=== PATIENT | female | born 1965 | race African-American/Black ===

== ENCOUNTER 2017-01-08 18:58 | Inpatient (IN) | payer MEDICAID ==
[~2017-01-08] VITALS: Ht 160 cm; Wt 113.4 kg
[~2017-01-08 18:58] MED LIST: AMLO10TA80 PO; CALC667C4 PO; CINA30 PO; CLONIDINE PO; FOLI1TAB63 PO; LOP25 PO
[2017-01-08 22:47] LABS: HEMATOCRIT. 27.8 % (36.0-48.0); HEMOGLOBIN. 9.3 g/dL (12.0-16.0); MEAN CORPUSCULAR HEMOGLOBIN 30.9 pg (28.0-32.0); MEAN CORPUSCULAR VOLUME 92.8 fL (81.0-99.0); MEAN PLATELET VOLUME 7.2 fl (7.4-10.4); PLATELET 365 x1000/uL (130-400)
[2017-01-08 22:54] LABS: INR 1.1; PROTHROMBIN TIME 11.9 sec (9.4-11.6)
[2017-01-08 22:56] LABS: CHLORIDE 90 mEq/L (98-107)
[2017-01-08 23:02] LABS: CARBON DIOXIDE 26 mEq/L (21-32)
[2017-01-08 23:03] LABS: PLATELET ESTIMATE NORMAL
[2017-01-09 09:00] VITALS: BP 177/94
[2017-01-09 09:15] VITALS: BP 177/94
[2017-01-09] MEDS ORDERED: IPRATROPIUM/ALBUTEROL 0.5-3(2.5)MG/3ML NEB INH PRN (09:30)
[2017-01-09] MEDS ORDERED: VANCOMYCIN 1 G PREMIX 200 ML IV SCH (09:30)
[2017-01-09] MEDS ORDERED: DOCUSATE SODIUM 100MG CAPSULE PO PRN (09:30)
[2017-01-09] MEDS ORDERED: ACETAMINOPHEN 325MG TABLET PO PRN (09:30)
[2017-01-09] MEDS ORDERED: CLONIDINE 0.1MG TABLET PO PRN (09:30)
[2017-01-09] MEDS ORDERED: ONDANSETRON HCL 4MG/2ML VIAL IV PRN (09:30)
[2017-01-09] MEDS ORDERED: MAGNESIUM/ALUMINUM HYDROXIDE/SIMETHICONE 30ML UDC PO PRN (09:30)
[2017-01-09] MEDS: HYDROCODONE/ACETAMINOPHEN 5/325MG TABLET PO PRN ×2 (10:40→20:10)
[2017-01-09 12:00] VITALS: BP 147/96
[2017-01-09] MEDS: CLONIDINE 0.1MG TABLET PO SCH ×2 (13:00→20:09)
[2017-01-09] MEDS ORDERED: METOPROLOL TARTRATE 25MG TABLET PO SCH (13:00)
[2017-01-09] MEDS: VITAMIN B / W-C 1 TAB PO SCH (13:50)
[2017-01-09] MEDS: CALCIUM ACETATE 667MG CAPSULE PO SCH ×2 (13:50→18:38)
[2017-01-09 16:00] VITALS: BP 143/87
[2017-01-09 20:00] VITALS: BP 142/86
[2017-01-09] MEDS: METOPROLOL TARTRATE 25MG TABLET PO SCH (20:09)
[2017-01-10] VITALS: BP 133/76
[2017-01-10 04:00] VITALS: BP 155/86
[2017-01-10] MEDS: HYDROCODONE/ACETAMINOPHEN 5/325MG TABLET PO PRN ×2 (04:34→16:57)
[2017-01-10] MEDS: OMEPRAZOLE 20MG CAPSULE EXTENDED RELEASE PO SCH (06:27)
[2017-01-10 07:47] LABS: PHOSPHORUS 8.6 mg/dL (2.5-4.9)
[2017-01-10 08:00] VITALS: BP 130/79
[2017-01-10 08:16] LABS: HEMOGLOBIN. 8.9 g/dL (12.0-16.0); MEAN CORPUSCULAR HEMOGLOBIN 30.3 pg (28.0-32.0); MEAN CORPUSCULAR VOLUME 91.9 fL (81.0-99.0); MEAN PLATELET VOLUME 7.6 fl (7.4-10.4); PLATELET 411 x1000/uL (130-400); RED BLOOD CELL COUNT 2.94 mill/uL (4.2-5.4); RED CELL DISTRIBUTION WIDTH 14.2 % (11.6-14.6)
[2017-01-10] MEDS: METOPROLOL TARTRATE 25MG TABLET PO SCH ×2 (08:59→20:26)
[2017-01-10] MEDS: CLONIDINE 0.1MG TABLET PO SCH ×2 (08:59→20:26)
[2017-01-10] MEDS: VITAMIN B / W-C 1 TAB PO SCH (09:00)
[2017-01-10] MEDS: AMLODIPINE 10MG TABLET PO SCH (09:00)
[2017-01-10] MEDS: CINACALCET HCL 60MG TABLET PO SCH (09:00)
[2017-01-10 09:53] LABS: PLATELET ESTIMATE NORMAL
[2017-01-10 12:00] VITALS: BP 113/69
[2017-01-10] MEDS: CALCIUM ACETATE 667MG CAPSULE PO SCH ×2 (12:52→16:57)
[2017-01-10 16:00] VITALS: BP 118/73
[2017-01-10 20:00] VITALS: BP 108/59
[2017-01-11] VITALS: BP 121/70
[2017-01-11 04:00] VITALS: BP 105/63
[2017-01-11] MEDS: OMEPRAZOLE 20MG CAPSULE EXTENDED RELEASE PO SCH (07:01)
[2017-01-11 07:24] LABS: HEMATOCRIT. 25.1 % (36.0-48.0); HEMOGLOBIN. 8.3 g/dL (12.0-16.0); MEAN CORPUSCULAR HEMOGLOBIN 30.5 pg (28.0-32.0); MEAN CORPUSCULAR VOLUME 92.5 fL (81.0-99.0); PLATELET 421 x1000/uL (130-400); RED BLOOD CELL COUNT 2.71 mill/uL (4.2-5.4); RED CELL DISTRIBUTION WIDTH 13.9 % (11.6-14.6)
[2017-01-11 08:00] VITALS: BP 113/61
[2017-01-11] MEDS: AMLODIPINE 10MG TABLET PO SCH (09:00)
[2017-01-11] MEDS: CLONIDINE 0.1MG TABLET PO SCH (09:00)
[2017-01-11] MEDS: VITAMIN B / W-C 1 TAB PO SCH (09:17)
[2017-01-11] MEDS: CINACALCET HCL 60MG TABLET PO SCH (09:17)
[2017-01-11] MEDS: METOPROLOL TARTRATE 25MG TABLET PO SCH (09:17)
[2017-01-11] MEDS: CALCIUM ACETATE 667MG CAPSULE PO SCH ×3 (09:17→17:22)
[2017-01-11 13:43] LABS: PLATELET ESTIMATE INCREASED
[2017-01-11 16:00] VITALS: BP 121/80
[2017-01-11 19:22] VITALS: BP 121/80
[2017-01-11] MEDS ORDERED: EPOETIN ALFA 10000UNITS/ML VIAL SUBCUT SCH (21:00)
[2017-01-12] MEDS ORDERED: FAMOTIDINE 20MG TABLET PO SCH (07:20)
== END 2017-01-11 20:30 | disposition home health service (06) | DRG 344 ==
LOC: ER 21:35 → 6EST 01-09 00:56 → ENRESERV 01-09 07:10 → SUPCPDRO 01-09 08:55
PROVIDERS: ADMIT Family Medicine Adult Medicine; ATTEND Family Medicine Adult Medicine
PROC: 5A1D60Z (ICD-10-PCS; principal; 2017-01-09)
DX: M00.012 Staphylococcal arthritis, left shoulder (principal); E11.22 Type 2 diabetes mellitus with diabetic chronic kidney disease; E44.0 Moderate protein-calorie malnutrition; N18.6 End stage renal disease; I12.0 Hypertensive chronic kidney disease with stage 5 chronic kidney disease or end stage renal disease; I25.10 Atherosclerotic heart disease of native coronary artery without angina pectoris; D63.8 Anemia in other chronic diseases classified elsewhere; R74.0 Nonspecific elevation of levels of transaminase and lactic acid dehydrogenase [LDH]; B95.62 Methicillin resistant Staphylococcus aureus infection as the cause of diseases classified elsewhere; Z86.73 Personal history of transient ischemic attack (TIA), and cerebral infarction without residual deficits; Z88.1 Allergy status to other antibiotic agents; Z99.2 Dependence on renal dialysis; Z91.19 Patient's noncompliance with other medical treatment and regimen; Z79.899 Other long term (current) drug therapy; Z68.41 Body mass index [BMI] 40.0-44.9, adult; E66.01 Morbid (severe) obesity due to excess calories
CPT/HCPCS: 36415; 71010; 80048; 80053; 80076; 80202; 83735; 84100; 85025; 85610; 93005; 93970; 97110; 97116; 97162; 97166; 99285; C1893; J0885; J7030

== ENCOUNTER 2018-01-01 17:42 | Emergency (ER) | payer MEDICAID ==
[~2018-01-01] VITALS: Ht 180.3 cm; Wt 135.0 kg
[~2018-01-01 17:42] MED LIST changes: -CALC667C4 PO; -CLONIDINE PO; +LEVO250T58 MT; +SEVE800T8 PO
[2018-01-01] MEDS ORDERED: MORPHINE SULFATE 4 MG/ML CPJ (NOT FOR IM USE) IV STA (21:02)
[2018-01-01] MEDS ORDERED: ONDANSETRON HCL 4MG/2ML VIAL IV STA (21:02)
[2018-01-01 22:05] LABS: INR 1.1; PARTIAL THROMBOPLASTIN TIME 28.9 sec (23.4-31.0); PROTHROMBIN TIME 10.7 sec (9.1-11.1)
[2018-01-01 22:06] LABS: BASOPHILS % 1.1 % (0.0-2.0); HEMATOCRIT. 33.8 % (36.0-48.0); HEMOGLOBIN. 11.5 g/dL (12.0-16.0); MEAN CORPUSCULAR HEMOGLOBIN 33.3 pg (28.0-32.0); MEAN CORPUSCULAR VOLUME 97.5 fL (81.0-99.0); MEAN PLATELET VOLUME 8.1 fl (7.4-10.4); MONOCYTES % 9.6 % (2.0-8.0); NEUTROPHILS % 74.3 % (40.0-76.0); PLATELET 227 x1000/uL (130-400); RED BLOOD CELL COUNT 3.47 mill/uL (4.2-5.4)
[2018-01-02 00:05] VITALS: BP 179/101
== END 2018-01-02 00:05 | disposition home or self-care (01) ==
LOC: ER 17:42
DX: T82.41XA Breakdown (mechanical) of vascular dialysis catheter, initial encounter (principal); Y83.2 Surgical operation with anastomosis, bypass or graft as the cause of abnormal reaction of the patient, or of later complication, without mention of misadventure at the time of the procedure; Y92.9 Unspecified place or not applicable; I12.0 Hypertensive chronic kidney disease with stage 5 chronic kidney disease or end stage renal disease; N18.6 End stage renal disease; Z99.2 Dependence on renal dialysis
CPT/HCPCS: 36415; 80048; 85025; 85610; 85730; 86850; 86900; 86901; 96374; 96375; 99284; J2270; J2405

== ENCOUNTER 2020-07-06 09:32 | Inpatient (IN) | payer MEDICAID ==
[~2020-07-06] VITALS: Ht 172.7 cm; Wt 90.7 kg
[2020-07-06] MEDS ORDERED: DEXAMETHASONE 10 MG/ML VIAL IV ONE (10:00)
[2020-07-06 10:53] LABS: BASOPHILS % 0.4 % (0.0-2.0); HEMATOCRIT. 40.1 % (36.0-48.0); HEMOGLOBIN. 13.1 g/dL (12.0-16.0); LYMPHOCYTES % 7.1 % (20.0-50.0); MEAN CORPUSCULAR HEMOGLOBIN 31.1 pg (28.0-32.0); MEAN CORPUSCULAR VOLUME 94.9 fL (81.0-99.0); MEAN PLATELET VOLUME 8.9 fl (7.4-10.4); MONOCYTES % 5.9 % (2.0-8.0); NEUTROPHILS % 86.6 % (40.0-76.0); PLATELET 251 x1000/uL (130-400); RED BLOOD CELL COUNT 4.23 mill/uL (4.2-5.4)
[2020-07-06 11:01] LABS: BG BASE EXCESS 2.1 mmol/L (-2.0-2.0); BG CARBOXYHEMOGLOBIN 0.4 % (0.5-1.5); BG DEOXYHEMOGLOBIN 10.9 % (0.0-5.0); BG FRACTION INSPIRED OXYGEN 100; BG HCO3 ACT 25.6 mmol/L (22.0-26.0); BG OXYGEN SATURATION 89.1 % (92.0-98.5); BG OXYHEMOGLOBIN 88.7 % (94.0-97.0); BG PH 7.469 (7.350-7.450); BG PO2 59.4 mmHg (75.0-100.0); BG SAMPLE SITE RIGHT RADIAL; BG TOTAL HEMOGLOBIN 13.7 g/dL (12.0-18.0); BG VENT MODE MASK - NRB
[2020-07-06 11:01] LABS: CHLORIDE 94 mEq/L (98-107)
[2020-07-06] MEDS ORDERED: CLINDAMYCIN 600 MG in DEXTROSE 5% WATER 50 ML IV ONE (11:30)
[2020-07-06] MEDS ORDERED: HEPARIN 25,000 UNITS PREMIX 250 ML IV SCH ×2 (11:30→12:45)
[2020-07-06] MEDS ORDERED: CLINDAMYCIN 600MG PREMIX 50 ML IV SCH (12:00)
[2020-07-06] MEDS ORDERED: HEPARIN BOLUS PRN aPTT <36 IV (12:45)
[2020-07-06] MEDS ORDERED: BENZONATATE 100MG CAPSULE PO PRN (12:45)
[2020-07-06] MEDS ORDERED: ALBUTEROL 6.7GM HFA INHALER ORI PRN (12:45)
[2020-07-06] MEDS ORDERED: HEPARIN BOLUS PRN aPTT 37-44 IV (12:45)
[2020-07-06] MEDS ORDERED: ONDANSETRON HCL 4MG/2ML INJ IV PRN (12:45)
[2020-07-06] MEDS ORDERED: HYDRALAZINE HCL 100MG TABLET PO NR (12:45)
[2020-07-06] MEDS ORDERED: ACETAMINOPHEN 325MG TABLET PO PRN (12:45)
[2020-07-06] MEDS ORDERED: LABETALOL 5MG/ML SYR 20 MG/4 ML SYRINGE IV NR (12:50)
[2020-07-06 13:09] LABS: BG BASE EXCESS 2.2 mmol/L (-2.0-2.0); BG CARBOXYHEMOGLOBIN 0.3 % (0.5-1.5); BG DEOXYHEMOGLOBIN 13.7 % (0.0-5.0); BG FRACTION INSPIRED OXYGEN 100; BG HCO3 ACT 26.3 mmol/L (22.0-26.0); BG METHEMOGLOBIN 0.3 % (0.0-1.5); BG OXYGEN SATURATION 86.2 % (92.0-98.5); BG OXYHEMOGLOBIN 85.7 % (94.0-97.0); BG PH 7.446 (7.350-7.450); BG PO2 54.9 mmHg (75.0-100.0); BG SAMPLE SITE RIGHT RADIAL; BG TOTAL HEMOGLOBIN 13.8 g/dL (12.0-18.0); BG VENT MODE HIGH FLOW
[2020-07-06 13:47] LABS: D-DIMER 6.72 mg/L FEU (<0.50); INR 1.1; PARTIAL THROMBOPLASTIN TIME 33.9 sec (23.4-31.0); PROTHROMBIN TIME 11.6 sec (9.6-11.0)
[2020-07-06] MEDS ORDERED: HEPARIN 80 UNITS/KG BOLUS IV SCH (14:00)
[2020-07-06] MEDS: LEVOFLOXACIN 500MG PREMIX 100 ML IV NR ×2 (14:11→14:43)
[2020-07-06] MEDS: ENOXAPARIN 40MG/0.4ML SYR SUBCUT SCH (14:17)
[2020-07-06] MEDS: NIFEDIPINE XL 60MG TAB PO SCH ×2 (14:41→20:56)
[2020-07-06] MEDS: ASPIRIN 81MG TABLET PO SCH (18:22)
[2020-07-06] MEDS: HYDRALAZINE HCL 100MG TABLET PO SCH (20:56)
[2020-07-07 05:13] LABS: HEMATOCRIT. 39.6 % (36.0-48.0); HEMOGLOBIN. 12.5 g/dL (12.0-16.0); MEAN CORPUSCULAR HEMOGLOBIN 30.3 pg (28.0-32.0); MEAN CORPUSCULAR VOLUME 95.6 fL (81.0-99.0); PLATELET 271 x1000/uL (130-400); RED BLOOD CELL COUNT 4.14 mill/uL (4.2-5.4); RED CELL DISTRIBUTION WIDTH 14.3 % (11.6-14.6)
[2020-07-07] MEDS ORDERED: IVERMECTIN 3 MG TABLET PO NR (08:00)
[2020-07-07] MEDS: ASPIRIN 81MG TABLET PO SCH (08:48)
[2020-07-07] MEDS: DEXAMETHASONE 10 MG/ML VIAL IV SCH (08:48)
[2020-07-07] MEDS: HYDRALAZINE HCL 100MG TABLET PO SCH ×2 (08:48→20:14)
[2020-07-07] MEDS: NIFEDIPINE XL 60MG TAB PO SCH ×2 (08:49→20:14)
[2020-07-07] MEDS: ENOXAPARIN 40MG/0.4ML SYR SUBCUT SCH (08:49)
[2020-07-07] MEDS ORDERED: DEXAMETHASONE 6MG TABLET PO SCH (09:00)
[2020-07-07 11:30] VITALS: BP 146/79
[2020-07-07 12:00] VITALS: BP 149/76
[2020-07-07 16:00] VITALS: BP 143/66
[2020-07-07 17:03] LABS: PLATELET ESTIMATE NORMAL
[2020-07-07 20:37] VITALS: BP 117/79
[2020-07-08] MEDS: HYDRALAZINE HCL 100MG TABLET PO SCH ×4 (00:34→21:58)
[2020-07-08 00:42] VITALS: BP 134/68
[2020-07-08 04:00] VITALS: BP 107/59
[2020-07-08 05:47] VITALS: BP 130/68
[2020-07-08 07:26] LABS: HEMATOCRIT. 36.2 % (36.0-48.0); MEAN CORPUSCULAR HEMOGLOBIN 31.3 pg (28.0-32.0); MEAN CORPUSCULAR VOLUME 94.4 fL (81.0-99.0); MEAN PLATELET VOLUME 8.5 fl (7.4-10.4); PLATELET 323 x1000/uL (130-400); RED BLOOD CELL COUNT 3.83 mill/uL (4.2-5.4); RED CELL DISTRIBUTION WIDTH 14.3 % (11.6-14.6)
[2020-07-08] MEDS: ASPIRIN 81MG TABLET PO SCH (08:22)
[2020-07-08] MEDS: DEXAMETHASONE 10 MG/ML VIAL IV SCH (08:23)
[2020-07-08] MEDS: NIFEDIPINE XL 60MG TAB PO SCH ×2 (08:23→21:58)
[2020-07-08] MEDS: ENOXAPARIN 40MG/0.4ML SYR SUBCUT SCH (08:23)
[2020-07-08 12:00] VITALS: BP 101/58
[2020-07-08] MEDS ORDERED: VANCOMYCIN 2,000 MG in DEXT 5% WATER 500 ML IV SCH (14:00)
[2020-07-08] MEDS ORDERED: ENOXAPARIN 60MG/0.6ML SYR SUBCUT NR (15:00)
[2020-07-08] MEDS ORDERED: DIPHENHYDRAMINE 50MG/ML VIAL IV PRN (15:45)
[2020-07-08] MEDS: LEVOFLOXACIN 250MG PREMIX 50 ML IV SCH (16:43)
[2020-07-08 20:00] VITALS: BP 115/67
[2020-07-08 23:34] LABS: NUCLEATED RED BLOOD CELLS 1 /100 WBC; PLATELET ESTIMATE NORMAL
[2020-07-09] VITALS (7 sets, daily range): BP systolic 107–128; BP diastolic 52–68
[2020-07-09] MEDS: HYDRALAZINE HCL 100MG TABLET PO SCH ×3 (05:37→21:03)
[2020-07-09] MEDS ORDERED: IVERMECTIN 3 MG TABLET PO NR (08:00)
[2020-07-09] MEDS: DEXAMETHASONE 10 MG/ML VIAL IV SCH (09:07)
[2020-07-09] MEDS: ASPIRIN 81MG TABLET PO SCH (09:07)
[2020-07-09] MEDS: ENOXAPARIN 100MG/ML SYR SUBCUT SCH (09:07)
[2020-07-09] MEDS: NIFEDIPINE XL 60MG TAB PO SCH ×2 (09:08→20:56)
[2020-07-10] VITALS (7 sets, daily range): BP systolic 117–146; BP diastolic 64–81
[2020-07-10] MEDS: HYDRALAZINE HCL 100MG TABLET PO SCH ×3 (06:02→20:27)
[2020-07-10 07:20] LABS: HEMATOCRIT. 34.6 % (36.0-48.0); HEMOGLOBIN. 11.2 g/dL (12.0-16.0); MEAN CORPUSCULAR HEMOGLOBIN 30.7 pg (28.0-32.0); MEAN CORPUSCULAR VOLUME 95.2 fL (81.0-99.0); MEAN PLATELET VOLUME 8.6 fl (7.4-10.4); PLATELET 242 x1000/uL (130-400); RED BLOOD CELL COUNT 3.64 mill/uL (4.2-5.4); RED CELL DISTRIBUTION WIDTH 14.3 % (11.6-14.6)
[2020-07-10] MEDS: NIFEDIPINE XL 60MG TAB PO SCH ×2 (09:12→20:27)
[2020-07-10] MEDS: ASPIRIN 81MG TABLET PO SCH (09:12)
[2020-07-10] MEDS: ENOXAPARIN 100MG/ML SYR SUBCUT SCH (09:12)
[2020-07-10] MEDS: DEXAMETHASONE 10 MG/ML VIAL IV SCH (09:12)
[2020-07-10 11:27] LABS: BG BASE EXCESS -1.3 mmol/L (-2.0-2.0); BG CARBOXYHEMOGLOBIN 0.3 % (0.5-1.5); BG DEOXYHEMOGLOBIN 3.5 % (0.0-5.0); BG FRACTION INSPIRED OXYGEN 100; BG HCO3 ACT 22.1 mmol/L (22.0-26.0); BG METHEMOGLOBIN 0.1 % (0.0-1.5); BG OXYGEN SATURATION 96.5 % (92.0-98.5); BG OXYHEMOGLOBIN 96.1 % (94.0-97.0); BG PCO2 32.7 mmHg (35.0-45.0); BG PH 7.447 (7.350-7.450); BG PO2 92.3 mmHg (75.0-100.0); BG SAMPLE SITE RIGHT RADIAL; BG TOTAL HEMOGLOBIN 12.1 g/dL (12.0-18.0); BG VENT MODE VAPO
[2020-07-10 13:26] LABS: ATYPICAL LYMPHOCYTES 1; NUCLEATED RED BLOOD CELLS 1 /100 WBC; PLATELET ESTIMATE NORMAL
[2020-07-10] MEDS: LEVOFLOXACIN 250MG PREMIX 50 ML IV SCH (14:24)
[2020-07-11] VITALS: BP 143/73
[2020-07-11 04:00] VITALS: BP 120/60
[2020-07-11] MEDS: HYDRALAZINE HCL 100MG TABLET PO SCH ×3 (06:17→22:15)
[2020-07-11 06:57] LABS: BASOPHILS % 0.2 % (0.0-2.0); EOSINOPHILS % 0.2 % (0.0-5.0); HEMATOCRIT. 33.4 % (36.0-48.0); HEMOGLOBIN. 10.9 g/dL (12.0-16.0); LYMPHOCYTES % 4.9 % (20.0-50.0); MEAN CORPUSCULAR HEMOGLOBIN 30.7 pg (28.0-32.0); MEAN CORPUSCULAR VOLUME 94.6 fL (81.0-99.0); MEAN PLATELET VOLUME 8.5 fl (7.4-10.4); MONOCYTES % 6.3 % (2.0-8.0); NEUTROPHILS % 88.4 % (40.0-76.0); PLATELET 216 x1000/uL (130-400); RED BLOOD CELL COUNT 3.53 mill/uL (4.2-5.4); RED CELL DISTRIBUTION WIDTH 14.3 % (11.6-14.6)
[2020-07-11 08:00] VITALS: BP 134/76
[2020-07-11] MEDS: DEXAMETHASONE 10 MG/ML VIAL IV SCH (08:51)
[2020-07-11] MEDS: ENOXAPARIN 100MG/ML SYR SUBCUT SCH (08:51)
[2020-07-11] MEDS: ASPIRIN 81MG TABLET PO SCH (08:52)
[2020-07-11] MEDS: NIFEDIPINE XL 60MG TAB PO SCH ×2 (08:52→22:15)
[2020-07-11 12:00] VITALS: BP 144/80
[2020-07-11 16:00] VITALS: BP 123/89
[2020-07-11] MEDS ORDERED: SODIUM POLYSTYRENE SULFONATE 15 G/60 ML BOT PO ONE (18:00)
[2020-07-11] MEDS ORDERED: LACTULOSE 20G/30ML UDC PO NR (18:00)
[2020-07-11 20:00] VITALS: BP 136/77
[2020-07-12] VITALS (7 sets, daily range): BP systolic 120–150; BP diastolic 70–86
[2020-07-12 06:32] LABS: HEMATOCRIT. 34.2 % (36.0-48.0); HEMOGLOBIN. 11.3 g/dL (12.0-16.0); MEAN CORPUSCULAR HEMOGLOBIN 31.3 pg (28.0-32.0); MEAN PLATELET VOLUME 8.6 fl (7.4-10.4); PLATELET 234 x1000/uL (130-400); RED CELL DISTRIBUTION WIDTH 14.1 % (11.6-14.6)
[2020-07-12] MEDS: HYDRALAZINE HCL 100MG TABLET PO SCH ×3 (06:33→21:17)
[2020-07-12] MEDS: ASPIRIN 81MG TABLET PO SCH (08:47)
[2020-07-12] MEDS: ENOXAPARIN 100MG/ML SYR SUBCUT SCH (08:47)
[2020-07-12] MEDS: NIFEDIPINE XL 60MG TAB PO SCH ×2 (08:48→21:16)
[2020-07-12] MEDS: DEXAMETHASONE 10 MG/ML VIAL IV SCH (09:53)
[2020-07-12] MEDS ORDERED: LIDOCAINE HCL 1% 20ML VIAL (Pyxis) INJ ONE (10:05)
[2020-07-12] MEDS ORDERED: SORBITOL 70% SOLN 30ML PO SCH (14:00)
[2020-07-12 18:43] LABS: PLATELET ESTIMATE NORMAL
[2020-07-13 04:00] VITALS: BP 136/82
[2020-07-13 08:00] VITALS: BP 122/75
[2020-07-13 08:09] LABS: HEMOGLOBIN. 11.9 g/dL (12.0-16.0); MEAN CORPUSCULAR HEMOGLOBIN 30.7 pg (28.0-32.0); MEAN CORPUSCULAR VOLUME 93.1 fL (81.0-99.0); MEAN PLATELET VOLUME 8.8 fl (7.4-10.4); PLATELET 259 x1000/uL (130-400); RED BLOOD CELL COUNT 3.86 mill/uL (4.2-5.4); RED CELL DISTRIBUTION WIDTH 14.2 % (11.6-14.6)
[2020-07-13] MEDS: NIFEDIPINE XL 60MG TAB PO SCH ×2 (08:44→21:19)
[2020-07-13] MEDS: ASPIRIN 81MG TABLET PO SCH (08:44)
[2020-07-13] MEDS: ENOXAPARIN 100MG/ML SYR SUBCUT SCH (08:45)
[2020-07-13] MEDS: DEXAMETHASONE 10 MG/ML VIAL IV SCH (09:17)
[2020-07-13 11:55] LABS: NUCLEATED RED BLOOD CELLS 6 /100 WBC; PLATELET ESTIMATE NORMAL
[2020-07-13 12:00] VITALS: BP 110/71
[2020-07-13 16:00] VITALS: BP 122/86
[2020-07-13] MEDS: HYDRALAZINE HCL 100MG TABLET PO SCH ×2 (18:01→21:19)
[2020-07-13 20:00] VITALS: BP 122/66
[2020-07-14 00:01] VITALS: BP 124/76
[2020-07-14 04:00] VITALS: BP 103/66
[2020-07-14] MEDS: HYDRALAZINE HCL 100MG TABLET PO SCH ×3 (05:29→20:53)
[2020-07-14 08:00] VITALS: BP 125/68
[2020-07-14] MEDS: ASPIRIN 81MG TABLET PO SCH (08:48)
[2020-07-14] MEDS: ENOXAPARIN 100MG/ML SYR SUBCUT SCH (08:50)
[2020-07-14] MEDS: NIFEDIPINE XL 60MG TAB PO SCH ×2 (08:50→20:53)
[2020-07-14] MEDS: DEXAMETHASONE 10 MG/ML VIAL IV SCH (09:36)
[2020-07-14 12:00] VITALS: BP 125/68
[2020-07-14 16:00] VITALS: BP 108/55
[2020-07-14 20:00] VITALS: BP 136/82
[2020-07-15 00:01] VITALS: BP 145/82
[2020-07-15 04:00] VITALS: BP 152/90
[2020-07-15] MEDS: HYDRALAZINE HCL 100MG TABLET PO SCH ×3 (05:40→22:34)
[2020-07-15] MEDS: NIFEDIPINE XL 60MG TAB PO SCH ×2 (07:37→22:34)
[2020-07-15 07:59] LABS: BASOPHILS % 0.4 % (0.0-2.0); EOSINOPHILS % 2.8 % (0.0-5.0); HEMATOCRIT. 33.1 % (36.0-48.0); HEMOGLOBIN. 10.8 g/dL (12.0-16.0); LYMPHOCYTES % 7.4 % (20.0-50.0); MEAN CORPUSCULAR VOLUME 94.5 fL (81.0-99.0); MEAN PLATELET VOLUME 9.2 fl (7.4-10.4); MONOCYTES % 7.5 % (2.0-8.0); NEUTROPHILS % 81.9 % (40.0-76.0); PLATELET 212 x1000/uL (130-400); RED CELL DISTRIBUTION WIDTH 14.4 % (11.6-14.6)
[2020-07-15 08:00] VITALS: BP 137/74
[2020-07-15] MEDS: ASPIRIN 81MG TABLET PO SCH (10:13)
[2020-07-15] MEDS: DEXAMETHASONE 10 MG/ML VIAL IV SCH (10:13)
[2020-07-15] MEDS: ENOXAPARIN 100MG/ML SYR SUBCUT SCH (10:14)
[2020-07-15 12:00] VITALS: BP 115/66
[2020-07-15 16:00] VITALS: BP 120/78
[2020-07-15 20:00] VITALS: BP 141/79
[2020-07-15] MEDS: OXYMETAZOLINE HCL NASAL SPRAY 15ML BOTHNSTRLS SCH (21:00)
[2020-07-15] MEDS: FLUTICASONE PROPIONATE 50MCG/SPRAY BOTTLE BOTHNSTRLS SCH (22:34)
[2020-07-16] VITALS: BP 136/80
[2020-07-16] MEDS: HYDRALAZINE HCL 100MG TABLET PO SCH ×3 (06:17→21:01)
[2020-07-16] MEDS: OXYMETAZOLINE HCL NASAL SPRAY 15ML BOTHNSTRLS SCH ×2 (09:00→21:48)
[2020-07-16] MEDS: FLUTICASONE PROPIONATE 50MCG/SPRAY BOTTLE BOTHNSTRLS SCH ×2 (09:00→21:01)
[2020-07-16] MEDS: NIFEDIPINE XL 60MG TAB PO SCH ×2 (09:52→21:01)
[2020-07-16] MEDS: ASPIRIN 81MG TABLET PO SCH (09:52)
[2020-07-16] MEDS: DEXAMETHASONE 10 MG/ML VIAL IV SCH (09:53)
[2020-07-16] MEDS: ENOXAPARIN 100MG/ML SYR SUBCUT SCH (09:53)
[2020-07-16 12:00] VITALS: BP 125/74
[2020-07-16 16:00] VITALS: BP 109/68
[2020-07-16 16:26] LABS: BG BASE EXCESS 2.3 mmol/L (-2.0-2.0); BG CARBOXYHEMOGLOBIN 0.2 % (0.5-1.5); BG DEOXYHEMOGLOBIN 8.5 % (0.0-5.0); BG FRACTION INSPIRED OXYGEN 21; BG HCO3 ACT 25.8 mmol/L (22.0-26.0); BG METHEMOGLOBIN 0.3 % (0.0-1.5); BG OXYGEN SATURATION 91.5 % (92.0-98.5); BG PCO2 36.2 mmHg (35.0-45.0); BG PH 7.471 (7.350-7.450); BG PO2 65.9 mmHg (75.0-100.0); BG SAMPLE SITE RIGHT RADIAL; BG VENT MODE ROOM AIR
[2020-07-16 20:32] VITALS: BP 120/66
[2020-07-17 04:00] VITALS: BP 133/74
[2020-07-17] MEDS: HYDRALAZINE HCL 100MG TABLET PO SCH ×3 (05:58→22:00)
[2020-07-17 07:44] LABS: BASOPHILS % 1.2 % (0.0-2.0); EOSINOPHILS % 0.9 % (0.0-5.0); HEMATOCRIT. 33.8 % (36.0-48.0); HEMOGLOBIN. 11.1 g/dL (12.0-16.0); LYMPHOCYTES % 9.9 % (20.0-50.0); MEAN CORPUSCULAR HEMOGLOBIN 31.3 pg (28.0-32.0); MEAN CORPUSCULAR VOLUME 95.3 fL (81.0-99.0); MEAN PLATELET VOLUME 9.1 fl (7.4-10.4); PLATELET 205 x1000/uL (130-400); RED BLOOD CELL COUNT 3.55 mill/uL (4.2-5.4); RED CELL DISTRIBUTION WIDTH 14.5 % (11.6-14.6)
[2020-07-17 08:00] VITALS: BP 124/74
[2020-07-17] MEDS: DEXAMETHASONE 10 MG/ML VIAL IV SCH (08:42)
[2020-07-17] MEDS: OXYMETAZOLINE HCL NASAL SPRAY 15ML BOTHNSTRLS SCH ×2 (08:42→23:48)
[2020-07-17] MEDS: ASPIRIN 81MG TABLET PO SCH (08:42)
[2020-07-17] MEDS: FLUTICASONE PROPIONATE 50MCG/SPRAY BOTTLE BOTHNSTRLS SCH ×2 (08:42→23:49)
[2020-07-17] MEDS: NIFEDIPINE XL 60MG TAB PO SCH ×2 (08:43→21:00)
[2020-07-17] MEDS: ENOXAPARIN 100MG/ML SYR SUBCUT SCH (08:43)
[2020-07-17 12:00] VITALS: BP 112/69
[2020-07-17 16:00] VITALS: BP 124/76
[2020-07-17 20:00] VITALS: BP 133/76
[2020-07-18] VITALS: BP 107/59
[2020-07-18 04:00] VITALS: BP 128/65
[2020-07-18] MEDS: HYDRALAZINE HCL 100MG TABLET PO SCH ×3 (05:13→21:02)
[2020-07-18 08:00] VITALS: BP 114/65
[2020-07-18] MEDS: FLUTICASONE PROPIONATE 50MCG/SPRAY BOTTLE BOTHNSTRLS SCH ×2 (09:00→20:57)
[2020-07-18] MEDS: OXYMETAZOLINE HCL NASAL SPRAY 15ML BOTHNSTRLS SCH ×2 (09:00→20:58)
[2020-07-18] MEDS: ASPIRIN 81MG TABLET PO SCH (09:23)
[2020-07-18] MEDS: NIFEDIPINE XL 60MG TAB PO SCH ×2 (09:27→21:00)
[2020-07-18] MEDS: ENOXAPARIN 100MG/ML SYR SUBCUT SCH (09:28)
[2020-07-18 12:00] VITALS: BP 106/66
[2020-07-18 15:33] LABS: PARTIAL THROMBOPLASTIN TIME 25.1 sec (23.4-31.0); PROTHROMBIN TIME 10.9 sec (9.6-11.0)
[2020-07-18 16:00] VITALS: BP 103/54
[2020-07-18 20:00] VITALS: BP 109/63
[2020-07-19] VITALS (52 sets, daily range): BP systolic 94–133; BP diastolic 66–91
[2020-07-19] MEDS: HYDRALAZINE HCL 100MG TABLET PO SCH ×2 (05:38→13:11)
[2020-07-19] MEDS ORDERED: ALTEPLASE 2MG/VIAL ITC ONE (07:15)
[2020-07-19] MEDS ORDERED: SODIUM BICARBONATE 4% (2.4MEQ) 5ML VIAL IV ONE (07:38)
[2020-07-19] MEDS ORDERED: LIDOCAINE HCL 1% 20ML VIAL (Pyxis) INJ ONE (07:38)
[2020-07-19] MEDS ORDERED: IOHEXOL-300 100 ML BOTTLE ONE (07:38)
[2020-07-19] MEDS ORDERED: HEPARIN 1000 UNITS/ML 10ML ONE (07:38)
[2020-07-19] MEDS ORDERED: FENTANYL CITRATE/PF 50MCG/ML 2ML VIAL ONE ×2 (07:48→10:40)
[2020-07-19] MEDS ORDERED: CLINDAMYCIN 600MG PREMIX 50 ML IV NR (08:00)
[2020-07-19] MEDS: ASPIRIN 81MG TABLET PO SCH (09:00)
[2020-07-19] MEDS: NIFEDIPINE XL 60MG TAB PO SCH (09:00)
[2020-07-19] MEDS: FLUTICASONE PROPIONATE 50MCG/SPRAY BOTTLE BOTHNSTRLS SCH (09:00)
[2020-07-19] MEDS ORDERED: HEPARIN 5000 UNITS/ML VIAL IV ONE (09:00)
[2020-07-19] MEDS: ENOXAPARIN 100MG/ML SYR SUBCUT SCH (09:00)
[2020-07-19] MEDS ORDERED: FENTANYL CITRATE/PF 50MCG/ML 2ML VIAL IV ONE ×2 (09:45→11:00)
[2020-07-19] MEDS ORDERED: IOHEXOL-300 50 ML BOTTLE IV ONE ×3 (09:59→11:03)
[2020-07-19] MEDS ORDERED: ALTEPLASE 2MG/VIAL ITC NR (11:00)
[2020-07-19] MEDS ORDERED: ONDANSETRON HCL 4MG/2ML INJ IV SCH (11:30)
[2020-07-19] MEDS ORDERED: ONDANSETRON HCL 4MG/2ML INJ ONE (11:33)
[2020-07-19] MEDS ORDERED: SODIUM CHLORIDE 0.9% 250ML IV SOLN IV ONE (13:00)
[2020-07-19] MEDS ORDERED: METOCLOPRAMIDE HCL 5MG TABLET PO PRN (13:45)
[2020-07-19] MEDS ORDERED: MIDODRINE HCL 5MG TABLET PO SCH (14:00)
[2020-07-19] MEDS ORDERED: CALCIUM CHLORIDE 1GM/10ML SYR IV ONE (15:15)
[2020-07-19] MEDS ORDERED: SODIUM BICARBONATE 8.4% 1 MEQ/ML 50ML SYR IV ONE (15:15)
== END 2020-07-19 15:34 | disposition expired | DRG 710 ==
LOC: ER 09:38 → MICUSO 11:32 → 7WST 07-07 08:35 → 5WST 07-17 15:41
PROVIDERS: ADMIT Internal Medicine; ATTEND Internal Medicine
PROC: 5A1D70Z Performance of Urinary Filtration, Intermittent, Less than 6 Hours Per Day (ICD-10-PCS; 2020-07-06)
PROC: 5A1D70Z Performance of Urinary Filtration, Intermittent, Less than 6 Hours Per Day (ICD-10-PCS; 2020-07-08)
PROC: 06HY33Z Insertion of Infusion Device into Lower Vein, Percutaneous Approach (ICD-10-PCS; 2020-07-12)
PROC: B54BZZA Ultrasonography of Right Lower Extremity Veins, Guidance (ICD-10-PCS; 2020-07-12)
PROC: 5A1D70Z Performance of Urinary Filtration, Intermittent, Less than 6 Hours Per Day (ICD-10-PCS; 2020-07-12)
PROC: 5A1D70Z Performance of Urinary Filtration, Intermittent, Less than 6 Hours Per Day (ICD-10-PCS; 2020-07-15)
PROC: 5A1D70Z Performance of Urinary Filtration, Intermittent, Less than 6 Hours Per Day (ICD-10-PCS; 2020-07-17)
PROC: 5A12012 Performance of Cardiac Output, Single, Manual (ICD-10-PCS; principal; 2020-07-19)
PROC: 5A2204Z Restoration of Cardiac Rhythm, Single (ICD-10-PCS; 2020-07-19)
PROC: 5A1D70Z Performance of Urinary Filtration, Intermittent, Less than 6 Hours Per Day (ICD-10-PCS; 2020-07-19)
PROC: 03WY3JZ Revision of Synthetic Substitute in Upper Artery, Percutaneous Approach (ICD-10-PCS; 2020-07-19)
PROC: 05WY3JZ Revision of Synthetic Substitute in Upper Vein, Percutaneous Approach (ICD-10-PCS; 2020-07-19)
PROC: 3E03317 Introduction of Other Thrombolytic into Peripheral Vein, Percutaneous Approach (ICD-10-PCS; 2020-07-19)
PROC: B31N1ZZ Fluoroscopy of Other Upper Arteries using Low Osmolar Contrast (ICD-10-PCS; 2020-07-19)
PROC: 05743ZZ Dilation of Left Innominate Vein, Percutaneous Approach (ICD-10-PCS; 2020-07-19)
PROC: 027V3ZZ Dilation of Superior Vena Cava, Percutaneous Approach (ICD-10-PCS; 2020-07-19)
PROC: 05C43ZZ Extirpation of Matter from Left Innominate Vein, Percutaneous Approach (ICD-10-PCS; 2020-07-19)
PROC: 0BH17EZ Insertion of Endotracheal Airway into Trachea, Via Natural or Artificial Opening (ICD-10-PCS; 2020-07-19)
DX: A41.89 Other specified sepsis (principal); U07.1 COVID-19; I21.A1 Myocardial infarction type 2; J96.01 Acute respiratory failure with hypoxia; E43 Unspecified severe protein-calorie malnutrition; J12.82 Pneumonia due to coronavirus disease 2019; N18.6 End stage renal disease; E11.22 Type 2 diabetes mellitus with diabetic chronic kidney disease; E66.9 Obesity, unspecified; E87.1 Hypo-osmolality and hyponatremia; E87.5 Hyperkalemia; E87.8 Other disorders of electrolyte and fluid balance, not elsewhere classified; I12.0 Hypertensive chronic kidney disease with stage 5 chronic kidney disease or end stage renal disease; D64.9 Anemia, unspecified; T82.818A Embolism due to vascular prosthetic devices, implants and grafts, initial encounter; Y82.8 Other medical devices associated with adverse incidents; J00 Acute nasopharyngitis [common cold]; Z68.30 Body mass index [BMI] 30.0-30.9, adult; Z86.73 Personal history of transient ischemic attack (TIA), and cerebral infarction without residual deficits; Z99.2 Dependence on renal dialysis; Z88.8 Allergy status to other drugs, medicaments and biological substances; Y92.89 Other specified places as the place of occurrence of the external cause
CPT/HCPCS: 36415; 36600; 36905; 36907; 71045; 76937; 80048; 80051; 80053; 80202; 82375; 82728; 82805; 82962; 83615; 83880; 84145; 84484; 85025; 85379; 86140; 86141; 87426; 93005; 93970; 97162; 97166; 99152; 99153; 99291; C1725; C1752; C1766; C1769; C1887; C2630; J1100; J1200; J1644; J1650; J1956; J2405; J2997; J3010; J3370; J3490; J7040; J7060; J8597; Q9967; U0003; G0500